=== PATIENT | female | born 1990 | race Two or more races ===

== ENCOUNTER 2023-04-02 16:40 | Emergency (ER) | payer OTHER ==
[~2023-04-02] VITALS: Ht 154.9 cm; Wt 60.9 kg
[2023-04-02 16:45] VITALS: TEMP 98.3
[2023-04-02] MEDS: METOCLOPRAMIDE HCL 5 MG/ML 2 ML VIAL IVP ONE (18:20)
[2023-04-02] MEDS ORDERED: OMEP20 PO (19:28)
[2023-04-02 19:48] VITALS: BP 128/70; PULSE 62; RESP 16
== END 2023-04-02 19:50 | disposition home or self-care (01) ==
LOC: EMS 16:44
DX: R13.14 Dysphagia, pharyngoesophageal phase (principal); E03.9 Hypothyroidism, unspecified
CPT/HCPCS: 99285; 96374; 70490; J2765